=== PATIENT | female | born 1955 | race African-American/Black ===

== ENCOUNTER 2016-11-16 13:56 | Observation (INO) | payer OTHER ==
[~2016-11-16] VITALS: Ht 175.3 cm; Wt 112.8 kg
[2016-11-16 15:23] LABS: EOSINOPHIL (%) 0.5 % (0-5); HEMATOCRIT 41.3 % (36.0-46.0); IMMATURE GRANULOCYTE (%) 0.3 % (0.0-0.7); IMMATURE GRANULOCYTE COUNT 0.1 K/uL; LYMPHOCYTE COUNT 0.5 K/uL (1.0-2.8); MCH 26.2 PG (29.0-34.0); MCHC 32.9 G/DL (30.0-36.0); MCV 79.4 FL (83-99); MEAN PLAT.VOLUME 9.1 uM^3 (9.5-12.4); MONOCYTE (%) 10.6 % (3-12); MONOCYTE COUNT 0.4 K/uL (0-0.8); NEUTROPHIL (%) 75.1 % (45-76); NEUTROPHIL COUNT 2.9 K/uL (1.8-6.4); PLATELET COUNT 202 K/uL (156-360); RBC DIS.WIDTH-CV 14.3 % (11.8-14.6); RBC DIS.WIDTH-SD 41.1 % (39-53); WHITE BLOOD COUNT 3.9 K/uL (4.1-10.2)
[2016-11-16 15:31] LABS: CHLORIDE 103 mEq/L (99-109); POTASSIUM 3.4 mEq/L (3.7-5.4); SODIUM 138 mEq/L (136-147)
[2016-11-16 15:33] LABS: GLUCOSE 161 mg/dL (70-99)
[2016-11-16 15:34] LABS: ANION GAP 11 MEQ/L (2-14)
[2016-11-16 15:35] LABS: TOTAL BILIRUBIN 0.3 mg/dL (0.0-1.0)
[2016-11-16 15:37] LABS: ALKALINE PHOSPHATASE 75 IU/L (3-129)
[2016-11-16 15:38] LABS: GFR ESTIMATE (CALCULATED) 32 mL/min/; UREA NITROGEN (BUN) 15 mg/dL (9-23)
[2016-11-16 15:40] LABS: CREATINE KINASE 140 IU/L (1-294); LIPASE 17 U/L (1.0-51.0); TOTAL CK 140 IU/L (1-294)
[2016-11-16 15:41] LABS: TROP-I INTERPRETATION NEGATIVE; TROPONIN-I 0.02 ng/mL (0.0-0.30)
[2016-11-16 15:46] LABS: CK-MB 0.7 ng/mL (0.0-4.9)
[2016-11-16 20:17] LABS: SERUM ETHYL ALCOHOL < 10 mg/dL
[2016-11-16 20:52] LABS: ADD MIUA? YES; BILIRUBIN NEGATIVE; BLOOD SMALL; COLOR STRAW ((YELLOW)); GLUCOSE (STRIP) NEGATIVE; KETONES NEGATIVE; LEUKOCYTES NEGATIVE; NITRITE NEGATIVE; PROTEIN (STRIP) NEGATIVE; SPECIFIC GRAVITY 1.008 (1.000-1.030); UROBILINOGEN 0.2 MG/DL (0.2-1.0)
[2016-11-16 20:57] LABS: BACTERIA NONE SEEN /HPF; EPITHELIAL CELLS NONE SEEN /HPF; MUCUS TRACE /LPF; RED BLOOD CELLS 0-5 /HPF (0-5); WHITE BLOOD CELLS 0-5 /HPF (0-5)
[2016-11-16] MEDS ORDERED: ZOLOFT100 MG PO (20:59)
[2016-11-16] MEDS ORDERED: COZAAR50 MG PO (20:59)
[2016-11-16 21:53] LABS: TROP-I INTERPRETATION NEGATIVE; TROPONIN-I 0.01 ng/mL (0.0-0.30)
[2016-11-16 23:17] LABS: AMPHETAMINES QUANT VALUE 0 NG/ML; BARBITUATES QUANT VALUE 0 NG/ML; BENZODIAZEPINES QUANT VALUE 0 NG/ML; BENZODIAZEPINES, URINE SCREEN Negative (200 ng/mL); MARIJUANA QUANT VALUE 0 NG/ML; OPIATES QUANTITATIVE VALUE 0 NG/ML; PHENCYCLIDINE QUANT VALUE 0 NG/ML
[2016-11-17 00:33] VITALS: BP 148/65
[2016-11-17 03:42] LABS: EOSINOPHIL (%) 0.4 % (0-5); HEMATOCRIT 39.2 % (36.0-46.0); IMMATURE GRANULOCYTE (%) 0.4 % (0.0-0.7); IMMATURE GRANULOCYTE COUNT 0.1 K/uL; MCH 25.9 PG (29.0-34.0); MCHC 32.4 G/DL (30.0-36.0); MEAN PLAT.VOLUME 9.3 uM^3 (9.5-12.4); MONOCYTE COUNT 0.4 K/uL (0-0.8); NEUTROPHIL (%) 44.9 % (45-76); NEUTROPHIL COUNT 1.1 K/uL (1.8-6.4); PLATELET COUNT 179 K/uL (156-360); RBC DIS.WIDTH-CV 14.5 % (11.8-14.6); RBC DIS.WIDTH-SD 41.8 % (39-53)
[2016-11-17 03:43] LABS: CHLORIDE 110 mEq/L (99-109); POTASSIUM 3.9 mEq/L (3.7-5.4); SODIUM 142 mEq/L (136-147)
[2016-11-17 03:45] LABS: WHITE BLOOD COUNT 2.5 K/uL (4.1-10.2)
[2016-11-17 03:47] LABS: ANION GAP 8 MEQ/L (2-14); TOTAL BILIRUBIN 0.3 mg/dL (0.0-1.0)
[2016-11-17 03:49] LABS: ALKALINE PHOSPHATASE 68 IU/L (3-129); GFR ESTIMATE (CALCULATED) > 59 mL/min/
[2016-11-17 03:50] VITALS: BP 164/91
[2016-11-17 03:50] LABS: UREA NITROGEN (BUN) 10 mg/dL (9-23)
[2016-11-17 03:51] LABS: DIRECT BILIRUBIN 0.1 mg/dL (0.0-0.3)
[2016-11-17 03:56] LABS: GLUCOSE 96 mg/dL (70-99); TROP-I INTERPRETATION NEGATIVE; TROPONIN-I 0.02 ng/mL (0.0-0.30)
[2016-11-17 06:17] VITALS: BP 160/61
[2016-11-17 08:00] VITALS: BP 168/96
[2016-11-17 10:27] VITALS: BP 174/91
[2016-11-17] MEDS ORDERED: AZITHROMYCIN500 M1 PO (12:00)
[2016-11-17 12:15] VITALS: BP 185/99
[2016-11-17] MEDS ORDERED: NORVASC5 MG PO (12:35)
[2016-11-17] MEDS ORDERED: LOSARTAN POTASS25 MG PO (12:40)
== END 2016-11-17 15:44 | disposition home or self-care (01) ==
LOC: EDBD 13:56 → EME 13:56 → EDOF 19:45 → 5WEST 20:47
PROVIDERS: Emergency Medicine; Physician Assistant
DX: R55 Syncope and collapse (principal); J20.9 Acute bronchitis, unspecified; N17.9 Acute kidney failure, unspecified; E87.6 Hypokalemia; E86.0 Dehydration; K76.9 Liver disease, unspecified; D72.819 Decreased white blood cell count, unspecified; I10 Essential (primary) hypertension; Z82.49 Family history of ischemic heart disease and other diseases of the circulatory system; Z82.5 Family history of asthma and other chronic lower respiratory diseases; Z82.0 Family history of epilepsy and other diseases of the nervous system; Z88.0 Allergy status to penicillin
CPT/HCPCS: 70450; 71010; 74176; 76705; 80048; 80053; 80076; 80306 90; 81003; 82105 90; 82378; 82550; 82553; 83605; 83690; 84484; 85025; 86301 90; 87502; 93005; G0378; G0480; J1650; J2060; J2405; J7030